=== PATIENT | female | born 1995 | race American Indian/Alaskan Native ===

== ENCOUNTER 2016-12-25 15:34 | Outpatient (CLI) | payer BC ==
--- NOTE | 2016-12-26 17:41 | Ultrasound Report ---
FINAL REPORT PROCEDURE: US BREAST BILAT COMPLETE TECHNIQUE: Real-time sonography in multiple planes of both breasts, including all four quadrants and the retroareolar regions, was performed with image documentation. HISTORY: BREAST PAIN COMPARISON: No prior CT scan submitted. FINDINGS: LEFT breast: There is a 3.7 x 2.0 x 0.8 centimeter solid lobular predominately hypoechoic mass at the 1 o'clock position RAD and ARAD appearing 13 centimeters from nipple and without significant vascularity or peripheral flow to this lesion. This is of indeterminate etiology. Fibroadenoma should be considered. Complex cyst is not favored. No prior studies on file. Defer to mammography evaluation and correlation if warranted RIGHT breast: No definitive cystic or solid masses seen of the right breast. Defer to mammography evaluation and correlation if warranted. IMPRESSION: Indeterminate lobular mass in the 1 o'clock position RAD/ARAD 13 centimeters from nipple of indeterminate etiology. Consider fibroadenoma. Followup and further workup advised.
== END 2016-12-25 15:35 | disposition home or self-care (01) ==
LOC: US 15:34
PROVIDERS: ATTEND Obstetrics & Gynecology
DX: N63 Unspecified lump in breast (principal); N64.4 Mastodynia

== ENCOUNTER 2020-03-20 10:12 | Emergency (ER) | payer SELFPAY ==
[2020-03-20 10:41] VITALS: BP 123/76
== END 2020-03-20 13:28 | disposition left against medical advice (07) ==
LOC: ED 10:12
DX: Z53.21 Procedure and treatment not carried out due to patient leaving prior to being seen by health care provider (principal)

== ENCOUNTER 2020-04-09 13:58 | Outpatient (CLI) | payer OTHER ==
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
== END 2020-04-09 13:59 | disposition home or self-care (01) ==
LOC: SPVWC 13:58
PROVIDERS: ATTEND Obstetrics & Gynecology
DX: D24.2 Benign neoplasm of left breast (principal); N60.01 Solitary cyst of right breast